=== PATIENT | male | born 1970 | race African-American/Black ===

== ENCOUNTER 2016-09-05 23:19 | Emergency (ER) | payer SELFPAY ==
[~2016-09-05] VITALS: Ht 167.6 cm; Wt 71.6 kg
[~2016-09-05 23:19] MED LIST: HYDROCODON-ACE1 EAC7 PO
[2016-09-06 00:22] LABS: EOSINOPHIL COUNT 0.1 K/uL (0-0.3); IMMATURE GRANULOCYTE (%) 0.2 % (0.0-0.7); IMMATURE GRANULOCYTE COUNT 0.2 K/uL; LYMPHOCYTE COUNT 3.7 K/uL (1.0-2.8); MONOCYTE (%) 6.1 % (3-12); MONOCYTE COUNT 0.8 K/uL (0-0.8); NEUTROPHIL (%) 62.4 % (45-76); NEUTROPHIL COUNT 7.6 K/uL (1.8-6.4)
[2016-09-06 00:27] LABS: INTER. NORMALIZED RATIO 1.2; PROTHROMBIN TIME 12.5 (9.2-11.2); PTT 27.6 (25-32)
[2016-09-06 00:28] LABS: CHLORIDE 105 mEq/L (99-109); POTASSIUM 3.7 mEq/L (3.7-5.4); SODIUM 140 mEq/L (136-147)
[2016-09-06 00:30] LABS: GLUCOSE 96 mg/dL (70-99)
[2016-09-06 00:31] LABS: ANION GAP 8 MEQ/L (2-14)
[2016-09-06 00:34] LABS: GFR ESTIMATE (CALCULATED) > 59 mL/min/; UREA NITROGEN (BUN) 11 mg/dL (9-23)
[2016-09-06 01:08] LABS: HEMATOCRIT 41.3 % (38.0-50.0); MCH 27.1 PG (29.0-34.0); MCHC 34.1 G/DL (30.0-36.0); MCV 79.3 FL (86-99); MEAN PLAT.VOLUME 10.2 uM^3 (9.0-12.4); PLATELET COUNT 328 K/uL (156-360); RBC DIS.WIDTH-CV 13.7 % (11.8-14.6); RBC DIS.WIDTH-SD 38.9 % (39-53); RED BLOOD COUNT 5.21 M/uL (4.00-5.50); WHITE BLOOD COUNT 12.2 K/uL (4.1-10.2)
[2016-09-06 01:58] LABS: CREATINE KINASE 159 IU/L (1-294)
[2016-09-06] MEDS ORDERED: KEFLEX500 MG PO (02:10)
[2016-09-06 02:38] VITALS: BP 107/80
== END 2016-09-06 02:40 | disposition home or self-care (01) ==
LOC: EME 23:19
PROVIDERS: Emergency Medicine
DX: L03.116 Cellulitis of left lower limb (principal); M62.81 Muscle weakness (generalized); F17.200 Nicotine dependence, unspecified, uncomplicated
CPT/HCPCS: 73701; 80048; 82550; 85025; 85610; 85730; 93971; 99281; 99285; J7030